=== PATIENT | female | born 1940 | race Caucasian/White ===

== ENCOUNTER → 2020-05-25 | Outpatient (CLI) | payer MEDICARE ==
[~2020-05-25] MED LIST: ASPI-630 PO; ATOR40TA59 PO; BIOT300T4 PO; CELE200C PO; DULO30CA2 PO; DULO30CA44 PO; FURO20TA3 PO; HAWT150C PO; HYDR50TA6 PO; LISI-338 PO; TRAM50TA PO; UBIQ75CA PO
--- NOTE | 2020-05-25 15:30 | KCIC ---
MRI Lumbar Spine without contrast History: Low back pain, radiculitis Technique: Multiplanar, multi sequential noncontrast MR imaging was performed of the lumbar spine. Comparison: July 12, 2014 Findings: Lumbar vertebral body stature is overall maintained. 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 There is again mild grade 1 anterior spondylolisthesis at L4-5 although somewhat greater. There is very minimal grade 1 anterior spondylolisthesis at L3-4 and L5-S1, also very mild posterior subluxation L2 relative to L3 and L1 relative to L2. Fairly severe L1-L2 degenerative disc disease has progressed in the interval, moderate L2-3 and L5-S1 degenerative disc disease also greater in the interval. There is mild L3-4 and L4-5 degenerative disc disease. Conus terminates at L1. There is mild lumbar levoscoliosis. There is a 1.2 cm probable cyst of the left kidney. L1-L2: There is minimal disc osteophyte complex and bulge superimposed on the minimally posteriorly subluxed inferior L1 vertebral body margin. There is mild facet hypertrophic change and buckling of the ligamentum flavum. There is increased mild narrowing of the far left lateral recess. There is mild narrowing of the neural foramina bilaterally greater on the left in part from facets. L2-L3: There is very minimal disc osteophyte complex and bulge greater than previously. There is mild facet hypertrophic change and buckling of the ligamentum flavum. There is increased mild narrowing of the far lateral recesses bilaterally. There is increased [id number] right and mild left neural foramina compromise. L3-L4: There is again moderate facet hypertrophic change and buckling of the ligamentum flavum. There is minimal bulge. There is mild narrowing of the far lateral recesses bilaterally. There is mild neural foramina compromise bilaterally. L4-L5: There is again moderate to severe facet hypertrophic change. There is somewhat increased moderate to severe buckling of the ligamentum flavum. There is partial uncovering of the posterior aspect of the disc due to spondylolisthesis, superimposed very minimal bulge. There is moderate to severe spinal stenosis, some preserved subarachnoid space. There is lateral recess stenosis bilaterally greater on the right somewhat greater in interval. There is mild narrowing of the right neural foramen greater distally with disc osteophyte complex near undersurface of the exiting right L4 nerve root, left neural foramen adequate. L5-S1: There is fairly severe facet degenerative change, minimal fluid in the facet articulations bilaterally. There is mild narrowing of the far left lateral recess from posteriorly. Right neural foramen is adequate. There is moderate narrowing of the left neural foramen greater distally with contact of the undersurface exiting left L5 nerve root by disc osteophyte complex. Impression: 1. There is multilevel lumbar degenerative disc disease greatest at L1-L2, somewhat progressed since 2014. There is multilevel abnormal alignment, multilevel facet degenerative change. 2. There is multilevel lateral recess stenosis most notable right greater than left at L4-5 at which there is overall moderate to severe spinal stenosis, other overall mild lateral recess stenosis. 3. There is moderate narrowing of the left L5-S1 and right L2-3 neural foramina, other mild narrowing. Electronically signed by: Otto Machado MD (05/25/2020 3:27 PM) [id number]
== END | disposition home or self-care (01) ==
LOC: KCIC MRI 13:45
PROVIDERS: ATTEND Physical Medicine & Rehabilitation Pain Medicine
DX: M47.817 Spondylosis without myelopathy or radiculopathy, lumbosacral region (principal); M51.36 Other intervertebral disc degeneration, lumbar region; M48.061 Spinal stenosis, lumbar region without neurogenic claudication; M43.17 Spondylolisthesis, lumbosacral region; M25.78 Osteophyte, vertebrae
CPT/HCPCS: 72148